=== PATIENT | male | born 1965 | race Caucasian/White ===

== ENCOUNTER 2017-12-31 19:18 | Emergency (ER) | payer BC ==
[~2017-12-31] VITALS: Ht 170.2 cm; Wt 94.3 kg
[~2017-12-31 19:18] MED LIST: PERCOCET 5/31 TABLET PO; ZOFRAN4 MG PO
[2017-12-31 21:39] LABS: HEMATOCRIT 47.9 % (38.0-50.0); HEMOGLOBIN 15.9 G/DL (12.5-16.6); MCH 29.1 PG (29.0-34.0); MCHC 33.2 G/DL (30.0-36.0); MCV 87.6 FL (86-99); RBC DIS.WIDTH-CV 12.3 % (11.8-14.6); RBC DIS.WIDTH-SD 39.8 % (39-53); RED BLOOD COUNT 5.47 M/uL (4.00-5.50); WHITE BLOOD COUNT 9.8 K/uL (4.1-10.2)
[2017-12-31 21:42] LABS: CHLORIDE 104 mEq/L (99-109); SODIUM 138 mEq/L (136-147)
[2017-12-31 21:44] LABS: GLUCOSE 89 mg/dL (70-99)
[2017-12-31 21:48] LABS: CREATININE 0.9 mg/dL (0.6-1.3); GFR ESTIMATE (CALCULATED) > 59 mL/min/ (58.99-99999); UREA NITROGEN (BUN) 20 mg/dL (9-23)
[2017-12-31 22:24] LABS: PLAT.SUFFICIENCY ADEQUATE; PLATELET COUNT 252 K/uL (156-360)
[2018-01-01] MEDS ORDERED: PERCOCET 5/31 TABLET PO (00:05)
[2018-01-01 00:15] VITALS: BP 138/80
== END 2018-01-01 00:26 | disposition home or self-care (01) ==
LOC: EME 19:18
PROVIDERS: Physician Assistant Medical
DX: S32.018A Other fracture of first lumbar vertebra, initial encounter for closed fracture (principal); W11.XXXA Fall on and from ladder, initial encounter
CPT/HCPCS: 70450; 72125; 72132; 74177; 80048; 85027; 99281; 99285; J2270; J7030